=== PATIENT | female | born 1990 | race Asian ===

== ENCOUNTER 2016-06-01 09:22 | Emergency (ER) | payer SELFPAY ==
--- NOTE | 2016-06-01 10:54 | ER Document Report ---
HPI - HPI Patient complains to provider of: rash Onset: Other - one month Severity: Moderate Pain Level: 3 - itchy Context: Patient presents to the emergency department with complaints of itchy rash in the creases of her thigh, under her abdominal fold and under her left breast for one month. Pt reports the rash started in the crease of her thigh. She denies fever vomiting diarrhea. She has not tried any [id number] medication. Patient also complains of a lump under her left breast. Associated Symptoms: None Exacerbated by: Denies Relieved by: Denies Similar symptoms previously: No Recently seen / treated by doctor: No - DERM Skin Color: Normal Past Medical History - General Information source: Patient Last Menstrual Period: current - Social History Smoking Status: Never Smoker Chew tobacco use (# tins/day): No Frequency of alcohol use: None Drug Abuse: None Occupation: Anyone Home Lives with: Family Family History: Reviewed & Not Pertinent Patient has suicidal ideation: No Patient has homicidal ideation: No Pulmonary Medical History: Reports: Hx Asthma Renal/ Medical History: Denies: Hx Peritoneal Dialysis Past Surgical History: Reports: Hx Section - Immunizations Hx Diphtheria, Pertussis, Tetanus Vaccination: No Vertical Provider Document - CONSTITUTIONAL Agree With Documented VS: Yes Exam Limitations: No Limitations General Appearance: WD/WN, No Apparent Distress - INFECTION CONTROL TRAVEL OUTSIDE OF THE [place] IN LAST 30 DAYS: No - HEENT HEENT: Atraumatic, Normocephalic - NECK Neck: Normal Inspection, Supple. negative: Lymphadenopathy-Left, Lymphadenopathy-Right - RESPIRATORY Respiratory: Breath Sounds Normal, No Respiratory Distress, Chest Non-Tender O2 Sat by Pulse Oximetry: 100 - CARDIOVASCULAR Cardiovascular: Regular Rate, Regular Rhythm - GI/ABDOMEN Gastrointestinal: Abdomen Soft - Obese - MUSCULOSKELETAL/EXTREMETIES Musculoskeletal/Extremeties: SHANIQUE ASENCIO - NEURO Level of Consciousness: Awake, Alert, Appropriate - DERM Integumentary: Warm, Dry, Rash Adult Front & Back Diagram: 1 - Tinea rash noted under left breast. No erythema swelling warmth or discharge. 2 - Tinea rash noted in the folds of her thigh and under her abdomen. Patient has a large obese abdomen AND abdominal fold. 3 - Patient complained of swelling to her left upper quad area no swelling noted Course - Re-evaluation Re-evalutation: 06/01/16 Patient instructed on taking a. Patient was instructed on the treatment and importance of keeping areas dry. Patient reports is okay she always goes naked in her house. - Vital Signs Vital signs: Temp Pulse Resp BP Pulse Ox 97.8 F 101 H 20 149/80 H 100 06/01/16 09:31 06/01/16 09:31 06/01/16 09:31 06/01/16 09:31 06/01/16 09:31 Discharge - Discharge Clinical Impression: tinea Condition: Stable Disposition: HOME, SELF-CARE Instructions: Topical Antifungal ([facility]) Additional Instructions: *You have been treated for tinea *Monitor your blood pressure. Your blood pressure was elevated today. This may be because you were anxious, in pain or because you need medication. It is important to follow up with your primary care provider for full evaluation. *Apply medication as prescribed *Monitor your skin for signs of worsening tinea. *Keep areas dry *[place] dressing under left breast tow-six times a day for 20-30 minutes until area is dried up *Wash the site twice daily as discussed *[facility] one [facility] for recheck *Return to ED for signs of increasing infection, worsening condition, changes, needs Prescriptions: Clotrimazole 45 gm TP BID #1 cream.gm. Forms: Elevated Blood Pressure
[2016-06-01 11:07] VITALS: BP 145/70
== END 2016-06-01 11:07 | disposition home or self-care (01) ==
LOC: ER 09:22
DX: B35.9 Dermatophytosis, unspecified (principal); R21 Rash and other nonspecific skin eruption
CPT/HCPCS: 99282